=== PATIENT | male | born 1975 | race Caucasian/White ===

== ENCOUNTER → 2021-08-26 01:08 | Outpatient (CLI) | payer OTHER, SELFPAY ==
[2021-08-26 21:22] LABS: SARS-CoV-2 RNA PCR Positive
== END ==
PROVIDERS: PCP Internal Medicine; Visit Provider Nurse Practitioner Family
DX: U07.1 COVID-19 (principal)
CPT/HCPCS: C9803; U0003; U0005

== ENCOUNTER 2022-04-04 11:06 | Outpatient (CLI) | payer OTHER, SELFPAY ==
--- NOTE | ~2022-04-04 | CT_ITS ---
EXAMINATION: CT sinus wo con DATE: 04/04/2022 11:22 INDICATION: Chronic sinusitis TECHNIQUE: Computed tomography (CT) of the paranasal sinuses was performed without contrast. Iterativ e reconstruction technique was employed. Exam dose: 310.25 mGy-cm total exam DLP. COMPARISON: 05/06/2019 CT brain FINDINGS: Leftward deviation of the very lower aspect of the nasal septum, which is otherwise relativ adria midline. There is postoperative change with resection of both middle nasal turbinates and wide nasal antral wi ndows including complete resection of the uncinate processes, maxillary ostia and infundibula. Bilate ral partial ethmoidectomies. There is mild mucosal periosteal thickening of the frontal sinuses and mildly prominent nodular soft tissue thickening of both maxillary sinuses. There is minimal mucosal periosteal thickening of the sphenoid sinuses. The mastoid air cells are normally developed and aerated bilaterally. No mastoid effusions. Middle an d inner ear apparatus appear unremarkable bilaterally. IMPRESSION: Status post bilateral nasal antral windows, bilateral partial ethmoidectomies Moderately prominent nodular mucoperiosteal thickening of the maxillary sinuses, patchy soft tissue t hickening of ethmoid air cells and to a lesser extent frontal sinuses Reviewed, dictated and finalized at [facility]. Reviewed, dictated and finalized at [facility]. IMPRESSION: Status post bilateral nasal antral windows, bilateral partial ethm oidectomies Moderately prominent nodular mucoperiosteal thickening of the maxillary sinuses , patchy soft tissue thickening of ethmoid air cells and to a lesser extent fro ntal sinuses
== END 2022-04-04 11:07 | disposition home or self-care (01) ==
PROVIDERS: PCP Internal Medicine; Visit Provider Otolaryngology
DX: J32.9 Chronic sinusitis, unspecified (principal)
CPT/HCPCS: 70486